=== PATIENT | male | born 1985 ===

== ENCOUNTER 2016-10-19 10:25 | Emergency (ER) | payer MEDICAID ==
[2016-10-19 10:31] VITALS: TEMP 98; BMI 29.9
[2016-10-19] MEDS ORDERED: Sodium Chloride 0.9% 1,000 ML IV STA (10:50)
--- NOTE | 2016-10-19 10:59 | ED PDOC ---
Arrival/HPI - General Historian: Patient - History of Present Illness Time/Duration: Other (5 days.) Symptom Onset: Gradual Symptom Course: Worsening Severity Level: Moderate Context: Walking <Lois Neil - Last Filed: 10/19/16 12:00> <Angel oLpez - Last Filed: 10/19/16 15:36> - General Chief Complaint: Abdominal Pain Time Seen by Provider: 10/19/16 10:27 - History of Present Illness Narrative History of Present Illness (Text): 10/19/16 10:51 Patient is a 31 y/o with PMH of nephrolithiasis presenting with right sided flank pain. Patient recently moved from [place]. Patient states 2 years ago he had renal stone, which he passed naturally. Then 6 months ago he had another attack of right sided flank pain, which also resolved by itself. Then on Saturday he had another bout of right flank pain. Patient saw a nurse practitioner at [facility], and was giving referral papers to follow up with Dr Bliss as outpatient, however due to language barrier patient's not aware that he needs to follow up. Patient is coming in to the ED due to worsening right flank pain. Patient denies fever, but admits to chills, and diaphoresis. Denies gross hematuria, denies dysuria, denies n/v/d. (Lois Neil) Past Medical History - Provider Review Nursing Documentation Reviewed: Yes - Travel History Have you recently traveled outside [place] w/in the past 3 mons?: No - Cardiac Hx Cardiac Disorders: No - Pulmonary Hx Respiratory Disorders: No - Neurological Hx Neurological Disorder: No - HEENT Hx HEENT Disorder: No - Renal Hx Renal Disorder: No - Endocrine/Metabolic Hx Endocrine Disorders: No - Hematological/Oncological Hx Blood Disorders: No - Integumentary Hx Dermatological Disorder: No - Musculoskeletal/Rheumatological Hx Musculoskeletal Disorders: No - Gastrointestinal Hx Gastrointestinal Disorders: No - Genitourinary/Gynecological Hx Genitourinary Disorders: Yes - Psychiatric Hx Psychophysiologic Disorder: No Hx Substance Use: No <Lois Neil - Last Filed: 10/19/16 12:00> Family/Social History - Physician Review Nursing Documentation Reviewed: Yes Family/Social History: No Known Family HX Smoking Status: Never Smoked Hx Alcohol Use: No Hx Substance Use: No <Lois Neil - Last Filed: 10/19/16 12:00> Allergies/Home Meds <KaryFlora fritzla - Last Filed: 10/19/16 12:00> <Angel Lopez P - Last Filed: 10/19/16 15:36> Allergies/Adverse Reactions: Allergies No Known Allergies Allergy (Verified 10/19/16 10:35) Review of Systems - Review of Systems Constitutional: Normal Eyes: Normal ENT: Normal Respiratory: Normal Cardiovascular: Normal Gastrointestinal: Abdominal Pain (right sided flank pain.). absent: Constipation, Diarrhea, Nausea, Vomiting Genitourinary Male: Normal Musculoskeletal: Normal Skin: Normal Neurological: Normal Endocrine: Normal Hemo/Lymphatic: Normal Psychiatric: Normal <KaryLois fritz Last Filed: 10/19/16 12:00> Physical Exam Vital Signs Reviewed: Yes Temperature: Afebrile Blood Pressure: Normal Pulse: Regular Respiratory Rate: Normal Appearance: Positive for: Well-Appearing, Non-Toxic, Comfortable Pain Distress: Moderate Mental Status: Positive for: Alert and Oriented X 3 - Systems Exam Head: Present: Atraumatic, Normocephalic Mouth: Present: Dry Neck: Present: Normal Range of Motion. No: Lymphadenopathy Respiratory/Chest: Present: Clear to Auscultation, Good Air Exchange. No: Respiratory Distress, Accessory Muscle Use, Wheezes, Rales, Rhonchi, Tachypneic Cardiovascular: Present: Regular Rate and Rhythm, Normal S1, S2. No: Murmurs, Tachycardic, Bradycardic, Rub, Gallop Abdomen: Present: Tenderness (right sided flank pain ), Normal Bowel Sounds. No : Distention, Rebound, Guarding Back: Present: CVA Tenderness Upper Extremity: Present: Normal Inspection. No: Cyanosis, Edema Lower Extremity: Present: Normal Inspection. No: Edema Neurological: Present: GCS=15 Skin: Present: Warm, Dry, Rashes, Normal Color Psychiatric: Present: Alert, Oriented x 3, Normal Insight, Normal Concentration <Flora Neilla - Last Filed: 10/19/16 12:00> Medical Decision Making <Flroa Neilla - Last Filed: 10/19/16 12:00> <Angel Lopez P - Last Filed: 10/19/16 15:36> ED Course and Treatment: 10/19/16 11:03 Patient is a 31 y/o with pmh of nephrolithiasis presenting with recurrent right sided flank pain. Differentials: nephrolithiasis, pyelonephritis, uti. Plan: Urinalysis, toradol for pain CBC, CMP, LIPASE [address] ABDO/PELVIS W/O contrast. and reevaluate Discussed with Dr Lopez. (Lois Neil) Report Date : 10/19/2016 13:10:58 PROCEDURE: CT Abdomen and Pelvis without intravenous contrast Dictator : Tyler Gibbs MD IMPRESSION: Infiltrates in the right lower lobe. No acute intra-abdominal findings 10/19/16 13:23 Using octoScope ring spinner I disc results w the pt. he says he has had pneumonia in the past. he reports feeling better now after toradol/IVF. Disc plan for f/u , rx, and rtr. Rx doxy. Pt v/u all questions and concerns addressed at this time. (Angel Lopez) - Lab Interpretations Lab Results: 10/19/16 11:20 10/19/16 11:20 Lab Results 10/19/16 11:30: Urine Color Yellow, Urine Appearance Clear, Urine pH 6.0, Ur Specific [place] 1.015, Urine Protein Negative, Urine Glucose (UA) Negative, Urine Ketones Negative, Urine Blood Small H, Urine Nitrate Negative, Urine Bilirubin Negative, Urine Urobilinogen 0.2, Ur Leukocyte Esterase Negative, Urine RBC 0 - 2, Urine WBC Negative 10/19/16 11:20: Sodium 138, Potassium 4.1, Chloride 101, Carbon Dioxide 26, Anion Gap 15, BUN 13, Creatinine 1.0, Est GFR ( Amer) > 60, Est GFR (Non- Af Amer) > 60, Random Glucose 106, Calcium 9.6, Total Bilirubin 0.5, AST 21, ALT 26, Alkaline Phosphatase 83, Total Protein 7.6, Albumin 4.4, Globulin 3.2, Albumin/Globulin Ratio 1.4, Lipase 73 10/19/16 11:20: WBC 11.1 H, RBC 5.02, Hgb 15.2, Hct 42.8, MCV 85.3, MCH 30.3, MCHC 35.5, RDW 12.3, Plt Count 216, MPV 9.7, Gran % 68.0, Lymph % (Auto) 24.0, [place] % (Auto) 5.8, Eos % (Auto) 1.9, Baso % (Auto) 0.3, Gran # 7.56 H, Lymph # 2.7, [place] # 0.6, Eos # 0.2, Baso # 0.03 - RAD Interpretation Radiology Orders: 10/19/16 11:59 ABDOMEN & PELVIS [ABD & PELVIS W/O PO OR IV CONT] [CT] Stat - Medication Orders Current Medication Orders: Discontinued Medications Sodium Chloride (Sodium Chloride 0.9%) 1,000 mls @ 999 mls/hr IV .Q1H1M STA Stop: 10/19/16 11:50 Last Admin: 10/19/16 11:29 Dose: 999 mls/hr Ketorolac Tromethamine (Toradol) 10 mg IVP STAT STA Stop: 10/19/16 10:50 Last Admin: 10/19/16 11:25 Dose: 10 mg Ondansetron HCl (Zofran Inj) 4 mg IVP STAT STA Stop: 10/19/16 10:51 Last Admin: 10/19/16 11:26 Dose: 4 mg Disposition/Present on Arrival - Present on Arrival History of DVT/PE: No History of Uncontrolled Diabetes: No Urinary Catheter: No History of Decub. Ulcer: No History Surgical Site Infection Following: None <Lois Neil - Last Filed: 10/19/16 12:00> - Present on Arrival Any Indicators Present on Arrival: No - Disposition Have Diagnosis and Disposition been Completed?: Yes Disposition Time: 13:23 <Angel Lopez - Last Filed: 10/19/16 15:36> - Disposition Diagnosis: Pneumonia Disposition: HOME/ ROUTINE Condition: GOOD Discharge Instructions (ExitCare): Community Acquired Pneumonia (ED) Additional Instructions: Please follow up with your doctor next week. Return to the ER for any worsening symptoms, fever, difficulty breathing or for any other concerns. Prescriptions: Doxycycline Hyclate 100 mg PO BID #14 capsule Referrals: Bria Orellana MD [Primary Care Provider] - Follow up with primary
[2016-10-19 11:37] LABS: URINE APPEARANCE CLEAR (CLEAR); URINE BILIRUBIN NEGATIVE (NEGATIVE); URINE BLOOD SMALL (NEGATIVE); URINE COLOR YELLOW (YELLOW); URINE GLUCOSE (UA) NEGATIVE (NEGATIVE); URINE KETONE NEGATIVE (NEGATIVE); URINE LEUKOCYTE ESTERASE NEGATIVE Leu/uL (NEGATIVE); URINE PROTEIN NEGATIVE mg/dL (<30 mg/dL); URINE UROBILINOGEN 0.2 E.U./dL (<1 E.U./dL)
[2016-10-19 11:39] LABS: URINE RBC 0 - 2 /hpf (0-2)
[2016-10-19 11:40] LABS: URINE WBC NEGATIVE /hpf (0-6)
[2016-10-19 12:09] LABS: ADD MANUAL DIFF? NO
[2016-10-19 12:21] LABS: BASO # 0.03 K/mm3 (0.0-2.0); BASO % 0.3 % (0.0-3.0); EOS # 0.2 (0.0-0.7); EOS % 1.9 % (1.5-5.0); GRAN # 7.56 (1.4-6.5); HEMATOCRIT 42.8 % (42.0-52.0); LYMPH # 2.7 (1.2-3.4); MEAN CELL VOLUME 85.3 fL (80.0-105.0); MEAN CORPUSCULAR HEMOGLOBIN 30.3 pg (25.0-35.0); MEAN CORPUSCULAR HGB CONC 35.5 g/dl (31.0-37.0); MEAN PLATELET VOLUME 9.7 fl (7.0-11.0); MONO # 0.6 (0.1-0.6); MONO % 5.8 % (1.0-6.0); PLATELET COUNT 216 10^3/uL (120.0-450.0); RED CELL DISTRIBUTION WIDTH 12.3 % (11.5-14.5); WHITE BLOOD COUNT 11.1 10^3/ul (4.5-11.0)
[2016-10-19 12:22] LABS: ALB/GLOB RATIO 1.4 (1.1-1.8); ALKALINE PHOSPHATASE 83 U/L (38-133); ALT/SGPT 26 U/L (7-56); AST/SGOT 21 U/L (15-59); BILIRUBIN,TOTAL 0.5 mg/dL (0.2-1.3); BLOOD UREA NITROGEN 13 mg/dL (7-21); CALCIUM 9.6 mg/dL (8.4-10.5); CARBON DIOXIDE 26 mmol/L (21-33); CHLORIDE 101 mmol/L (98-107); GFR AFRICAN-AMERICAN > 60; GLUCOSE,RANDOM 106 mg/dL (70-110); LIPASE 73 U/L (23-300); POTASSIUM 4.1 mmol/L (3.6-5.0); SODIUM 138 mmol/L (132-148); TOTAL PROTEIN 7.6 g/dL (5.8-8.3)
--- NOTE | 2016-10-19 13:12 | CT ---
PROCEDURE: CT Abdomen and Pelvis without intravenous contrast HISTORY: right flank pain COMPARISON: None. TECHNIQUE: Without contrast.. Contrast Dose: Radiation dose: Total exam DLP = 734 mGy-cm. This CT exam was performed using one or more of the following dose reduction techniques: Automated exposure control, adjustment of the mA and/or kV according to patient size, and/or use of iterative reconstruction technique. FINDINGS: LOWER THORAX: Minimal basilar infiltrates are seen at the right lung base with air bronchograms. This could represent an early pneumonia. LIVER: Unremarkable. No gross lesion or ductal dilatation. GALLBLADDER AND BILE DUCTS: Unremarkable. PANCREAS: Unremarkable. No gross lesion or ductal dilatation. SPLEEN: Unremarkable. ADRENALS: Unremarkable. No mass. KIDNEYS AND URETERS: Unremarkable. No hydronephrosis. No solid mass. VASCULATURE: Unremarkable. No aortic aneurysm. BOWEL: Unremarkable. No obstruction. No gross mural thickening. APPENDIX: Unremarkable. Normal appendix. PERITONEUM: Unremarkable. No free fluid. No free air. LYMPH NODES: Unremarkable. No enlarged lymph nodes. BLADDER: Unremarkable. REPRODUCTIVE: Unremarkable. BONES: No acute fracture. OTHER FINDINGS: None. IMPRESSION: Infiltrates in the right lower lobe. No acute intra-abdominal findings
[2016-10-19 13:26] VITALS: BP 138/81; RESP 18
[2016-10-19 13:55] VITALS: PULSE 78; O2SAT 97
== END 2016-10-19 13:54 | disposition home or self-care (01) ==
LOC: ED 10:25
DX: J18.9 Pneumonia, unspecified organism (principal)
CPT/HCPCS: 74176; 80053; 81001; 83690; 85025; 96361; 96374; 96375; 99283; J1885; J2405; J7040